=== PATIENT | female | born 1995 | race African-American/Black ===

== ENCOUNTER 2018-08-04 23:00 | Emergency (ER) | payer OTHER ==
--- NOTE | 2018-08-05 00:59 | PDOC ---
Medical Decision Making - Medical Decision Making 08/05/18 00:58 Patient seen by the advanced practice provider under my direct supervision. Ancillary testing reviewed as necessary. I agree with plan as outlined by the advanced practice provider. *DC/Admit/Observation/Transfer Diagnosis at time of Disposition: Abrasion hand Qualifiers: Encounter type: initial encounter Laterality: right Qualified Code(s): S60.511A - Abrasion of right hand, initial encounter - Discharge Dispostion Disposition: HOME - Prescriptions Prescriptions: Bacitracin - [Bacitracin Topical Ointment -] 1 applic TP TID #1 tube - Referrals Referrals: Lashae Carmona MD [Primary Care Provider] - - Patient Instructions Printed Discharge Instructions: DI for Abrasion Additional Instructions: apply bacitracin to the abrasions follow up with your doctor in 2-3 days for a wound check - Post Discharge Activity Forms/Work/School Notes: Back to Work
--- NOTE | 2018-08-05 01:09 | PDOC ---
History of Present Illness - General Chief Complaint: Injury Stated Complaint: INJURD FINGER Time Seen by Provider: 08/05/18 00:44 History Source: Patient - History of Present Illness Initial Comments: 08/05/18 01:25 22-year-old female while at work almost fell off the ladder, patient reports she was holding on to the ladder sustaining an abrasion to the right 2nd- 5 th finger. last tetanus unknown No medical history. Past History - Past Medical History Allergies/Adverse Reactions: Allergies Allergy/AdvReac Type Severity Reaction Status Date / Time tomato Allergy Itching Verified 08/04/18 23:16 Home Medications: Ambulatory Orders Norethindrone-E.estradiol-Iron [Freida Fe 1-20 Tablet] 1 each PO DAILY 12/07/15 Diphenhydramine HCl [Benadryl Capsules -] 25 mg PO TID #30 capsule 12/08/15 Loratadine [Claritin] 10 mg PO DAILY #30 tablet 12/08/15 predniSONE [Deltasone -] 40 mg PO DAILY #10 tablet 12/08/15 Bacitracin - [Bacitracin Topical Ointment -] 1 applic TP TID #1 tube 08/05/18 - Suicide/Smoking/Psychosocial Hx Smoking History: Never smoked Number of Cigarettes Smoked Daily: 0 Hx Alcohol Use: No Drug/Substance Use Hx: No Substance Use Type: None Review of Systems - Review of Systems Able to Perform ROS?: Yes Integumentary: Yes: Other (abrasion) *Physical Exam - Physical Exam General Appearance: Yes: Appropriately Dressed Integumentary: positive: Other (abrasions to finger) Progress Note - Progress Note Progress Note: A: finger abrasion wound cleaned with saline and bacitracin applied. tetanus *DC/Admit/Observation/Transfer Diagnosis at time of Disposition: Abrasion hand Qualifiers: Encounter type: initial encounter Laterality: right Qualified Code(s): S60.511A - Abrasion of right hand, initial encounter - Discharge Dispostion Disposition: HOME - Prescriptions Prescriptions: Bacitracin - [Bacitracin Topical Ointment -] 1 applic TP TID #1 tube - Referrals Referrals: Lashae Carmona MD [Primary Care Provider] - - Patient Instructions Printed Discharge Instructions: DI for Abrasion Additional Instructions: apply bacitracin to the abrasions follow up with your doctor in 2-3 days for a wound check - Post Discharge Activity Forms/Work/School Notes: Back to Work
[2018-08-05] MEDS ORDERED: DIPHTH,PERTUSS(ACELL),TET 0.5 ML DISP.SYRIN IM ONE ×2 (01:15→01:45)
[2018-08-05] MEDS ORDERED: BACITRACIN 15 GM TUBE TOPICAL OINTMENT TP ONE (01:21)
== END 2018-08-05 01:47 | disposition home or self-care (01) ==
LOC: JER 23:00
PROC: 3E0234Z Introduction of Serum, Toxoid and Vaccine into Muscle, Percutaneous Approach (ICD-10-PCS; principal; 2018-08-04)
DX: S60.511A Abrasion of right hand, initial encounter (principal); W22.8XXA Striking against or struck by other objects, initial encounter; Y93.89 Activity, other specified; Y92.59 Other trade areas as the place of occurrence of the external cause; Y99.0 Civilian activity done for income or pay
CPT/HCPCS: 90715; 99281-25

== ENCOUNTER 2019-01-31 03:36 | Emergency (ER) | payer OTHER ==
[2019-01-31 03:56] VITALS: BP 137/75; PULSE 95; TEMP 98.3; BMI 40.4
--- NOTE | 2019-01-31 04:17 | PDOC ---
Attending Attestation - Resident Resident Name: Aram Esqueda - ED Attending Attestation I have performed the following: I have examined & evaluated the patient, The case was reviewed & discussed with the resident, I agree w/resident's findings & plan, Exceptions are as noted - HPI HPI: 01/31/19 04:16 Ms. Tanner is a 23 yo F h/o fibroid who presents to the ER with a complaint of vaginal bleeding LMP was Dec 24 Pt had vaginal bleeding with lasted for 1 week, resolved and then recurred Pt is now passing clots No lightheadedness or dizziness No chest pain 01/31/19 04:19 - Physicial Exam PE: 01/31/19 04:19 GENERAL: The patient is in no acute distress. ENT: Ears normal, nares patent, oropharynx clear without exudates. Moist mucous membranes. NECK: Normal range of motion, supple LUNGS: Breath sounds equal, clear to auscultation bilaterally. No wheezes, and no crackles. HEART:Regular rate and rhythm, normal S1 and S2 without murmur, rub or gallop. ABDOMEN: Soft, nontender, normoactive bowel sounds. PELVIC: per Dr Esqueda EXTREMITIES: Normal range of motion, no edema. NEUROLOGICAL: Cranial nerves II through XII grossly intact. Normal speech. No focal neurological deficits. SKIN: Warm, Dry, normal turgor, no rashes or lesions noted. - Medical Decision Making 01/31/19 04:23 23 yo F presenting with persistent vaginal bleeding No signs of anemia or weakness Will do: labs - r/o anemia, r/o pt has no abdominal pain to suggest ovarian torsion, ovarian cyst, pelvic free fluid 01/31/19 06:23 Laboratory Tests 01/31/19 01/31/19 04:30 05:00 WBC 8.4 Hgb 8.5 L Hct 26.9 L Plt Count 554 H Urine HCG, Qual Negative Will discharge home. Patient has a follow-up with [facility]. Return to the ER for heavy vaginal bleeding, signs of symptomatic anemia, any other concerns or complaints Clinical impression: Dysfunctional uterine bleeding, initial presentation
--- NOTE | 2019-01-31 04:41 | PDOC ---
History of Present Illness - General Chief Complaint: Vaginal Bleeding Stated Complaint: VAGINAL BLEEDING Time Seen by Provider: 01/31/19 03:41 - History of Present Illness Initial Comments: Ms. Tanner is a 23 y/o female G0 with PMH significant for fibroids, presenting with vaginal bleeding and clots. Reports that this started a week ago. She intermittently has clots during her periods, but came in today because she feels the clots are worse and larger than before. Currently on OCPs. Denies headache, dizziness, chest pain, shortness of breath, nausea/vomiting, abdominal pain or cramping, dysuria, change in stool. Denies fever/chills. No other vaginal discharge. LNMP: Past History - Past Medical History Allergies/Adverse Reactions: Allergies Allergy/AdvReac Type Severity Reaction Status Date / Time tomato Allergy Itching Verified 01/31/19 03:56 COPD: No - Psycho Social/Smoking Cessation Hx Smoking History: Never smoked Number of Cigarettes Smoked Daily: 0 Hx Alcohol Use: No Drug/Substance Use Hx: No Substance Use Type: None Review of Systems - Review of Systems Comments:: GENERAL/CONSTITUTIONAL: No fever or chills. No weakness._ HEAD, EYES, EARS, NOSE AND THROAT: No change in vision. No change in hearing. No sore throat._ CARDIOVASCULAR: No chest pain or shortness of breath_ RESPIRATORY: Denies cough, hemoptysis_ GASTROINTESTINAL: No nausea, vomiting, diarrhea or constipation._ GENITOURINARY: No dysuria, frequency, or change in urination. Reports vaginal bleeding and clots. MUSCULOSKELETAL: No joint or muscle swelling or pain. No neck or back pain._ SKIN: No rash_ NEUROLOGIC: No headache, vertigo, loss of consciousness, or change in strength/ sensation._ ENDOCRINE: No increased thirst. No abnormal weight change_ ALLERGIC/IMMUNOLOGIC: No hives or skin allergy._ *Physical Exam - Vital Signs Last Vital Signs Temp Pulse Resp BP Pulse Ox 98.3 F 95 H 18 137/75 100 01/31/19 03:53 01/31/19 03:53 01/31/19 03:53 01/31/19 03:53 01/31/19 03:53 - Physical Exam Comments: GENERAL: Awake, alert, and oriented to person/place/time, in no acute distress_ HEAD: No signs of trauma, normocephalic, atraumatic _ EYES: PERRLA, EOMI, sclera anicteric, conjunctiva clear_ ENT: Hearing grossly normal, nares patent, oropharynx clear without exudates. No uvular deviation. Moist mucosa_ NECK: Normal ROM, supple, no lymphadenopathy, JVD, or masses_ LUNGS: No distress, speaks in full sentences, clear to auscultation bilaterally _ HEART: Regular rate and rhythm, normal S1 and S2, no murmurs appreciated, peripheral pulses normal and equal bilaterally._ ABDOMEN: Soft, nontender, normoactive bowel sounds. No guarding, no rebound. No masses_ EXTREMITIES: Normal inspection, Normal range of motion, no edema. No clubbing or cyanosis_ NEUROLOGICAL: Cranial nerves II through XII grossly intact. Normal speech, normal gait, no focal sensorimotor deficits _ SKIN: Warm, Dry, normal turgor, no rashes or lesions noted_ PELVIC: External exam shows no rash, lesions, ulcers. Os closed. Blood noted in the posterior and lateral fornices. No other discharge noted. No CMT. No adnexal tenderness. ED Treatment Course - LABORATORY CBC & Chemistry Diagram: 01/31/19 05:00 01/31/19 05:00 Medical Decision Making - Medical Decision Making 01/31/19 04:40 23F hx of fibroids here for vaginal bleeding with clots over the past week. -cbc, cmp -ua, ucx, upreg 01/31/19 06:30 Labs reviewed. Hgb mildly decreased but appears to be chronic. test negative. Plan to d/c and f/u OBGYN. Vaginal bleeding likely 2/2 fibroids. WBC 8.4 K/mm3 (4.0-10.0) 01/31/19 05:00 RBC 3.84 M/mm3 (3.60-5.2) 01/31/19 05:00 Hgb 8.5 GM/dL (10.7-15.3) L 01/31/19 05:00 Hct 26.9 % (32.4-45.2) L 01/31/19 05:00 MCV 70.1 fl (80-96) L 01/31/19 05:00 MCH 22.1 pg (25.7-33.7) L 01/31/19 05:00 MCHC 31.5 g/dl (32.0-36.0) L 01/31/19 05:00 RDW 22.5 % (11.6-15.6) H 01/31/19 05:00 Plt Count 554 K/MM3 (134-434) H 01/31/19 05:00 MPV 7.9 fl (7.5-11.1) 01/31/19 05:00 Absolute Neuts (auto) 5.4 K/mm3 (1.5-8.0) 01/31/19 05:00 Neutrophils % 64.5 % (42.8-82.8) 01/31/19 05:00 Lymphocytes % 26.7 % (8-40) 01/31/19 05:00 Monocytes % 6.1 % (3.8-10.2) 01/31/19 05:00 Eosinophils % 0.8 % (0-4.5) 01/31/19 05:00 Basophils % 1.9 % (0-2.0) 01/31/19 05:00 Nucleated RBC % 0 % (0-0) 01/31/19 05:00 Sodium 135 mmol/L (136-145) L 01/31/19 05:00 Potassium 3.8 mmol/L (3.5-5.1) 01/31/19 05:00 Chloride 106 mmol/L (98-107) 01/31/19 05:00 Carbon Dioxide 22 mmol/L (21-32) 01/31/19 05:00 Anion Gap 8 MMOL/L (8-16) 01/31/19 05:00 BUN 9.7 mg/dL (7-18) 01/31/19 05:00 Creatinine 1.0 mg/dL (0.55-1.3) 01/31/19 05:00 Est GFR (CKD-EPI)AfAm 90.68 01/31/19 05:00 Est GFR (CKD-EPI)NonAf 78.24 01/31/19 05:00 Random Glucose 90 mg/dL (74-106) 01/31/19 05:00 Calcium 8.8 mg/dL (8.5-10.1) 01/31/19 05:00 Total Bilirubin 0.3 mg/dL (0.2-1) 01/31/19 05:00 AST 21 U/L (15-37) 01/31/19 05:00 ALT 30 U/L (13-61) 01/31/19 05:00 Alkaline Phosphatase 69 U/L (45-117) 01/31/19 05:00 Total Protein 7.6 g/dl (6.4-8.2) 01/31/19 05:00 Albumin 3.6 g/dl (3.4-5.0) 01/31/19 05:00 Urine Test Results Urine Color [place] 01/31/19 04:30 Urine Appearance Turbid 01/31/19 04:30 Urine pH 5.5 (5.0-8.0) 01/31/19 04:30 Ur Specific [place] 1.036 (1.010-1.035) H 01/31/19 04:30 Urine Protein 2+ (NEGATIVE) H 01/31/19 04:30 Urine Glucose (UA) Negative (NEGATIVE) 01/31/19 04:30 Urine Ketones Trace (NEGATIVE) H 01/31/19 04:30 Urine Blood 3+ (NEGATIVE) H 01/31/19 04:30 Urine Nitrite Negative (NEGATIVE) 01/31/19 04:30 Urine Bilirubin Negative (NEGATIVE) 01/31/19 04:30 Ur Leukocyte Esterase Negative (NEGATIVE) 01/31/19 04:30 Discharge - Discharge Information Problems reviewed: Yes Clinical Impression/Diagnosis: Vaginal bleeding Condition: Stable Disposition: HOME - Admission No - Follow up/Referral Referrals: Lashae Carmona MD [Primary Care Provider] - Niurka Drew MD [Staff Physician] - - Patient Discharge Instructions Additional Instructions: Please make a follow up appointment with your OBGYN (Dr. Drew) to discuss the vaginal bleeding, your mild anemia, and your fibroids. If you experience any new, worsening, or concerning symptoms, including severe vaginal bleeding, dizziness, headache, shortness of breath, or any other concerns, please return to the emergency department. - Post Discharge Activity
[2019-01-31 05:54] LABS: EPI CELLS 7.3 /HPF (0-5/HPF); HYALINE CASTS 7 /lpf (0-8); PH,URINE 5.5 (5.0-8.0); URINE APPEARANCE TURBID; URINE BACTERIA 27.9 /hpf (NEGATIVE); URINE BILIRUBIN NEGATIVE (NEGATIVE); URINE COLOR ORANGE; URINE GLUCOSE (UA) NEGATIVE (NEGATIVE); URINE KETONE TRACE (NEGATIVE); URINE LEUK ESTERASE NEGATIVE (NEGATIVE); URINE NITRITE NEGATIVE (NEGATIVE); URINE PROTEIN 2+ (NEGATIVE); URINE RBC 2834 /hpf (0-4); URINE WBC 4 /hpf (0-5)
[2019-01-31 05:57] LABS: BASO % 1.9 % (0-2.0); EOS % 0.8 % (0-4.5); HEMATOCRIT 26.9 % (32.4-45.2); HEMOGLOBIN 8.5 GM/dL (10.7-15.3); LYMPH % 26.7 % (8-40); MCH 22.1 pg (25.7-33.7); MCHC 31.5 g/dl (32.0-36.0); MEAN CELL VOLUME 70.1 fl (80-96); MEAN PLT VOLUME 7.9 fl (7.5-11.1); MONO % 6.1 % (3.8-10.2); NEUT % 64.5 % (42.8-82.8); PLATELET COUNT 554 K/MM3 (134-434); RBC 3.84 M/mm3 (3.60-5.2); RDW 22.5 % (11.6-15.6); WHITE BLOOD COUNT 8.4 K/mm3 (4.0-10.0)
[2019-01-31 06:13] LABS: ALBUMIN 3.6 g/dl (3.4-5.0); BILIRUBIN,TOTAL 0.3 mg/dL (0.2-1); BLOOD UREA NITROGEN 9.7 mg/dL (7-18); CALCIUM 8.8 mg/dL (8.5-10.1); POTASSIUM 3.8 mmol/L (3.5-5.1); TOT PROT 7.6 g/dl (6.4-8.2)
[2019-01-31 10:38] LABS: ANISOCYTOSIS 2+; PLATELET ESTIMATE INCREASED
== END 2019-01-31 06:23 | disposition home or self-care (01) ==
LOC: JER 03:36
DX: N93.8 Other specified abnormal uterine and vaginal bleeding (principal)
CPT/HCPCS: 36415; 80053; 81003; 84703; 85025; 87077; 87086; 99283-25

== ENCOUNTER 2021-03-10 14:18 | Emergency (ER) | payer OTHER ==
[2021-03-10 14:28] VITALS: BP 118/75; PULSE 94; TEMP 98.6; BMI 36.2
[2021-03-10] MEDS ORDERED: KETOROLAC TROMETHAMINE 30 MG/1 ML VIAL IM ONE (15:57)
[2021-03-10] MEDS ORDERED: CYCLOBENZAPRINE HCL 10 MG TABLET (FP) PO ONE (15:57)
[2021-03-10] MEDS ORDERED: CYCLOBENZAPRINE HCL 10 MG TABLET (FP) ONE (16:53)
[2021-03-10] MEDS ORDERED: KETOROLAC TROMETHAMINE 30 MG/1 ML VIAL ONE (16:53)
== END 2021-03-10 17:04 | disposition home or self-care (01) ==
LOC: JERFT 14:18 → JER 14:18 → JERFT 17:04
PROC: 3E0233Z Introduction of Anti-inflammatory into Muscle, Percutaneous Approach (ICD-10-PCS; principal; 2021-03-10)
DX: M54.2 Cervicalgia (principal)
CPT/HCPCS: 99284-25

== ENCOUNTER 2021-03-30 19:11 | Emergency (ER) | payer OTHER ==
[2021-03-30 19:46] VITALS: BP 118/80; PULSE 97; TEMP 97.7; BMI 39.9
[2021-04-01 13:08] LABS: SARS-CoV-2 NAA Not Detected (Not Detected)
== END 2021-03-30 21:41 | disposition home or self-care (01) ==
LOC: JER 19:11
DX: Z20.822 Contact with and (suspected) exposure to COVID-19 (principal)
CPT/HCPCS: 99283-25; C9803; U0003; U0005

== ENCOUNTER 2021-05-15 04:39 | Inpatient (IN) | payer OTHER ==
[2021-05-11 09:40] VITALS: BMI 39.9
[2021-05-15] MEDS ORDERED: CEFAZOLIN 2 GM in DEXTROSE 5%-WATER - 50 ML IVPB ONE (06:00)
[2021-05-15] MEDS ORDERED: BUPIVACAINE LIPOSOME/PF (EXPAREL) 266 MG/20 ML VIAL ONE (07:03)
[2021-05-15] MEDS ORDERED: BUPIVACAINE HCL/PF 0.5% (5MG/ML) 10 ML VIAL ONE (07:03)
[2021-05-15] MEDS ORDERED: MIDAZOLAM HCL 2 MG/2 ML SINGLE DOSE VIAL ONE ×2 (07:14)
[2021-05-15] MEDS ORDERED: PROPOFOL 20 ML ONE (07:19)
[2021-05-15] MEDS ORDERED: ROCURONIUM BROMIDE 50 MG/5 ML SYRINGE ONE ×2 (07:19→08:51)
[2021-05-15] MEDS ORDERED: VASOPRESSIN 20 UNITS/ML VIAL IV ONE (07:21)
[2021-05-15] MEDS ORDERED: ceFAZolin SODIUM 1 GM VIAL IVPB ONE (08:17)
[2021-05-15] MEDS ORDERED: DEXAMETHASONE SOD PHOSPHATE 4 MG/1 ML VIAL ONE (08:26)
[2021-05-15] MEDS ORDERED: PHENYLEPHRINE HCL 10 MG/1 ML SINGLE DOSE VIAL ONE (08:29)
[2021-05-15] MEDS ORDERED: TRANEXAMIC ACID 1000 MG/10 ML VIAL ONE (08:46)
[2021-05-15] MEDS ORDERED: GLYCOPYRROLATE 0.2 MG/1 ML VIAL ONE (09:39)
[2021-05-15] MEDS ORDERED: NEOSTIGMINE METHYLSULFATE 0.5 MG/ML - 10 ML MDV ONE (09:39)
[2021-05-15] MEDS ORDERED: ACETAMINOPHEN INJECTION 100 ML IVPB ONE (09:46)
[2021-05-15] MEDS ORDERED: ONDANSETRON 4 MG/2 ML VIAL IVPUSH PRN ×2 (10:23→10:48)
[2021-05-15] MEDS ORDERED: LACTATED RINGERS SOLUTION 1,000 ML IV SCH (10:30)
[2021-05-15] MEDS ORDERED: BISACODYL 5 MG TABLET.DR (FP) PO PRN (10:48)
[2021-05-15] MEDS ORDERED: DOCUSATE SODIUM 100 MG CAPSULE (FP) PO PRN (10:48)
[2021-05-15] MEDS ORDERED: oxyCODONE HCL 5 MG TABLET PO PRN ×2 (10:48)
[2021-05-15] MEDS ORDERED: LACTATED RINGERS SOLUTION 1,000 ML/1,000 ML INFUS.BAG IV SCH (11:00)
[2021-05-15] MEDS: IBUPROFEN 800 MG/8 ML IJ IVPB SCH ×2 (12:09→20:13)
[2021-05-15] MEDS ORDERED: DEXTROSE 5%-WATER - 50 ML IVPB ONE (16:10)
[2021-05-15] MEDS ORDERED: ceFAZolin SODIUM 1 GM VIAL ONE (16:11)
[2021-05-15] MEDS: CEFAZOLIN 1 GM in DEXTROSE 5%-WATER - 50 ML IVPB SCH (16:22)
[2021-05-15] MEDS: ACETAMINOPHEN 500 MG TABLET (FP) PO SCH ×2 (17:02→23:06)
[2021-05-15 18:53] LABS: HEMATOCRIT 24.2 % (32.4-45.2); HEMOGLOBIN 7.3 GM/dL (10.7-15.3); MCHC 30.3 g/dl (32.0-36.0); MEAN PLT VOLUME 7.4 fl (7.5-11.1); PLATELET COUNT 546 10^3/uL (134-434); RBC 3.84 M/mm3 (3.60-5.2); RDW 20.4 % (11.6-15.6); WHITE BLOOD COUNT 11.3 K/mm3 (4.0-10.0)
[2021-05-15 18:54] LABS: MCH 19.1 pg (25.7-33.7)
[2021-05-15 19:23] LABS: CALCIUM 8.8 mg/dL (8.5-10.1)
[2021-05-15 19:27] LABS: CREATININE 0.9 mg/dL (0.55-1.3)
[2021-05-16] MEDS: CEFAZOLIN 1 GM in DEXTROSE 5%-WATER - 50 ML IVPB SCH (00:30)
[2021-05-16] MEDS ORDERED: ceFAZolin SODIUM 1 GM VIAL ONE (00:31)
[2021-05-16] MEDS ORDERED: DEXTROSE 5%-WATER - 50 ML IVPB ONE (00:31)
[2021-05-16] MEDS: IBUPROFEN 800 MG/8 ML IJ IVPB SCH (03:24)
[2021-05-16] MEDS: ACETAMINOPHEN 500 MG TABLET (FP) PO SCH ×4 (05:08→23:04)
[2021-05-16 09:24] LABS: HEMATOCRIT 21.9 % (32.4-45.2); MCH 18.9 pg (25.7-33.7); MCHC 30.1 g/dl (32.0-36.0); MEAN CELL VOLUME 62.8 fl (80-96); MEAN PLT VOLUME 7.6 fl (7.5-11.1); PLATELET COUNT 466 10^3/uL (134-434); RBC 3.48 M/mm3 (3.60-5.2); RDW 20.5 % (11.6-15.6); WHITE BLOOD COUNT 9.2 K/mm3 (4.0-10.0)
[2021-05-16 09:26] LABS: HEMOGLOBIN 6.6 GM/dL (10.7-15.3)
[2021-05-16] MEDS: ENOXAPARIN NA (PORCINE) 40 MG/0.4 ML DISP.SYRIN SQ SCH (09:52)
[2021-05-16 09:53] LABS: CALCIUM 7.9 mg/dL (8.5-10.1)
[2021-05-16 09:54] LABS: BLOOD UREA NITROGEN 8.2 mg/dL (7-18)
[2021-05-16 09:58] LABS: CREATININE 0.9 mg/dL (0.55-1.3)
[2021-05-16] MEDS ORDERED: PATIENT'S OWN MEDICATION (NON-FORMULARY) (Iron,Carb/Vit C/Vit B12/Folic [Iron 100 Plus Tab PO SCH (10:00)
[2021-05-16] MEDS ORDERED: LACTATED RINGERS SOLUTION 1,000 ML IV SCH (11:11)
[2021-05-16] MEDS ORDERED: FERROUS SO4 325 MG TABLET (FP) PO ONE (11:16)
[2021-05-16] MEDS: SIMETHICONE 80 MG TAB.CHEW (FP) PO PRN ×2 (16:26→20:43)
[2021-05-16 19:22] LABS: BASO % 0.5 % (0-2.0); EOS % 0.2 % (0-4.5); HEMATOCRIT 28.8 % (32.4-45.2); LYMPH % 19.5 % (8-40); MCH 21.2 pg (25.7-33.7); MCHC 31.2 g/dl (32.0-36.0); MEAN CELL VOLUME 67.9 fl (80-96); MEAN PLT VOLUME 7.7 fl (7.5-11.1); MONO % 4.5 % (3.8-10.2); NEUT % 75.3 % (42.8-82.8); PLATELET COUNT 489 10^3/uL (134-434); RBC 4.23 M/mm3 (3.60-5.2); RDW 23.5 % (11.6-15.6)
[2021-05-17] MEDS: ACETAMINOPHEN 500 MG TABLET (FP) PO SCH ×2 (05:51→11:07)
[2021-05-17 09:07] VITALS: BP 113/66; PULSE 76; TEMP 98.4
[2021-05-17] MEDS: ENOXAPARIN NA (PORCINE) 40 MG/0.4 ML DISP.SYRIN SQ SCH (09:17)
[2021-05-17 09:30] LABS: BASO % 1.3 % (0-2.0); EOS % 0.6 % (0-4.5); HEMATOCRIT 27.1 % (32.4-45.2); HEMOGLOBIN 8.9 GM/dL (10.7-15.3); LYMPH % 18.8 % (8-40); MCH 21.9 pg (25.7-33.7); MCHC 32.9 g/dl (32.0-36.0); MEAN CELL VOLUME 66.6 fl (80-96); MEAN PLT VOLUME 7.3 fl (7.5-11.1); MONO % 5.9 % (3.8-10.2); NEUT % 73.4 % (42.8-82.8); PLATELET COUNT 408 10^3/uL (134-434); RBC 4.08 M/mm3 (3.60-5.2); RDW 22.1 % (11.6-15.6); WHITE BLOOD COUNT 10.4 K/mm3 (4.0-10.0)
[2021-05-17 10:03] LABS: BLOOD UREA NITROGEN 6.8 mg/dL (7-18)
[2021-05-17 10:05] LABS: CREATININE 0.8 mg/dL (0.55-1.3)
[2021-05-17] MEDS ORDERED: MEASLES,MUMPS&RUBELLA VACC/PF 0.5 ML VIAL SQ ONE (15:15)
== END 2021-05-17 15:40 | disposition home or self-care (01) | DRG 519 ==
LOC: J2C 04:39 → J3W 11:58
PROVIDERS: ADMIT Obstetrics & Gynecology; ATTEND Obstetrics & Gynecology
PROC: 0UB90ZZ Excision of Uterus, Open Approach (ICD-10-PCS; principal; 2021-05-15 07:30)
PROC: 30233N1 Transfusion of Nonautologous Red Blood Cells into Peripheral Vein, Percutaneous Approach (ICD-10-PCS; 2021-05-16)
DX: D25.0 Submucous leiomyoma of uterus (principal); D62 Acute posthemorrhagic anemia; N92.0 Excessive and frequent menstruation with regular cycle
CPT/HCPCS: 36415; 36430; 36511; 80048; 81025; 85025; 85027; 86850; 86900; 86901; 86922; 88307-TC; 94760; P9038; P9058

== ENCOUNTER 2022-08-13 23:31 | Emergency (ER) | payer OTHER ==
[2022-08-13 23:36] VITALS: BP 129/89; PULSE 96; RESP 18; TEMP 98; BMI 44.8
[2022-08-13 23:48] LABS: URINE APPEARANCE TURBID; URINE BILIRUBIN NEGATIVE (NEGATIVE); URINE COLOR YELLOW; URINE GLUCOSE (UA) NEGATIVE (NEGATIVE); URINE KETONE NEGATIVE (NEGATIVE); URINE LEUK ESTERASE 3+ (NEGATIVE); URINE NITRITE NEGATIVE (NEGATIVE); URINE PROTEIN 2+ (NEGATIVE)
[2022-08-13 23:49] LABS: HCG,QUALITATIVE URINE Negative
[2022-08-13 23:51] LABS: HYALINE CASTS 1.44 /uL (0-3.1); URINE BACTERIA 9569.7 /uL (0-1359); URINE RBC 89.5 /uL (0-23.9); URINE WBC 5097.8 /uL (0-25.8)
[2022-08-14] MEDS ORDERED: SULFAMETHOXAZOLE/TRIMETHOPRIM 800MG/160MG D.S. TABLET PO ONE (00:23)
[2022-08-14] MEDS ORDERED: SULFAMETHOXAZOLE/TRIMETHOPRIM 800MG/160MG D.S. TABLET ONE (01:00)
== END 2022-08-14 01:20 | disposition home or self-care (01) ==
LOC: JER 23:31
DX: N39.0 Urinary tract infection, site not specified (principal); R30.0 Dysuria; R30.9 Painful micturition, unspecified; R31.9 Hematuria, unspecified
CPT/HCPCS: 81003; 84703; 87086; 87186; 99283-25